=== PATIENT | female | born 1965 | race Caucasian/White ===

== ENCOUNTER 2020-07-17 17:33 | Emergency (ER) | payer BC ==
[~2020-07-17] VITALS: Ht 162.6 cm; Wt 111.6 kg
[2020-07-17] MEDS ORDERED: SODIUM CHLORIDE 0.9% 1000ML 1,000 ML IV ONE (18:00)
[2020-07-17 19:12] LABS: BASOPHILS # (AUTO) 0.1 (0.0-0.1); BASOPHILS % 1.2 % (0.0-1.0); EOSINOPHILS # (AUTO) 0.2 (0.0-0.4); EOSINOPHILS % 2.5 % (0.0-6.0); HEMATOCRIT 43.6 % (34.2-44.1); HEMOGLOBIN 14.6 g/dL (12.0-16.0); LYMPHOCYTES # (AUTO) 2.8 (1.0-3.2); LYMPHOCYTES % 40.5 % (18.0-39.1); MEAN CORPUSCULAR HEMOGLOBIN 29.9 pg (28-32); MEAN CORPUSCULAR HGB CONC 33.5 g/dL (31-35); MEAN CORPUSCULAR VOLUME 89.2 fL (81-99); MONOCYTES # (AUTO) 0.5 (0.2-0.8); MONOCYTES % 6.7 % (4.4-11.3); NEUTROPHILS # (AUTO) 3.4 (2.1-6.9); NEUTROPHILS % 48.8 % (38.7-80.0); PLATELET COUNT 225 x10e3/uL (140-360); RED BLOOD COUNT 4.89 x10e6/uL (3.6-5.1); RED CELL DISTRIBUTION WIDTH 11.9 % (11.7-14.4)
[2020-07-17 19:30] LABS: ALANINE AMINOTRANSFERASE 57 IU/L (0-55); ALBUMIN 4.6 g/dL (3.5-5.0); ALBUMIN/GLOBULIN RATIO 1.5 (0.8-2.0); ALKALINE PHOSPHATASE 84 IU/L (40-150); ANION GAP 15.8 mmol/L (8-16); BLOOD UREA NITROGEN 16 mg/dL (7-26); BUN/CREATININE RATIO 19 (6-25); CALCIUM 9.6 mg/dL (8.4-10.2); CARBON DIOXIDE 22 mmol/L (22-29); CHLORIDE 100 mmol/L (98-107); CREATININE, SERUM 0.83 mg/dL (0.57-1.11); EST GLOMERULAR FILTRATION RATE > 60 ML/MIN (60-); GLUCOSE 277 mg/dL (74-118); POTASSIUM 3.8 mmol/L (3.5-5.1); SODIUM 134 mmol/L (136-145)
[2020-07-17 19:53] LABS: CLARITY,URINE SL CLOUDY (CLEAR); COLOR,URINE YELLOW (YELLOW); KETONES,URINE NEGATIVE (NEGATIVE); LEUKOCYTE ESTERASE ,URINE NEGATIVE (NEGATIVE); NITRITE,URINE NEGATIVE (NEGATIVE); PROTEIN,URINE DIPSTICK TRACE (NEGATIVE); URINE UROBILINOGEN 0.2 mg/dL (0.2 - 1)
[2020-07-17 20:06] LABS: BACTERIA,URINE MANY /HPF; EPITHELIAL CELLS,URINE MODERATE /LPF
== END 2020-07-17 20:45 | disposition home or self-care (01) ==
LOC: ER 18:26
DX: E11.65 Type 2 diabetes mellitus with hyperglycemia (principal); I10 Essential (primary) hypertension; I50.9 Heart failure, unspecified; K21.9 Gastro-esophageal reflux disease without esophagitis; F41.9 Anxiety disorder, unspecified; E03.9 Hypothyroidism, unspecified
CPT/HCPCS: 36415; 80053; 81001; 81003; 82948; 85025; 99283; J7030

== ENCOUNTER 2020-11-30 19:28 | Observation (INO) | payer BC ==
[~2020-11-30] VITALS: Ht 162.6 cm; Wt 109.0 kg
[2020-11-30] MEDS ORDERED: CEFEPIME 1GM/NS 0.9% 50 ML 50 ML IV STA (19:51)
[2020-11-30] MEDS ORDERED: ASPIRIN 81 MG CHEW TAB PO ONE (20:00)
[2020-11-30] MEDS ORDERED: SODIUM CHLORIDE 0.9% 1000ML 1,000 ML IV SCH (20:00)
[2020-11-30] MEDS ORDERED: ACETAMINOPHEN 325 MG TAB PO ONE (20:00)
[2020-11-30 20:11] LABS: BASOPHILS # (AUTO) 0.1 (0.0-0.1); BASOPHILS % 0.5 % (0.0-1.0); EOSINOPHILS % 0.2 % (0.0-6.0); HEMATOCRIT 38.6 % (34.2-44.1); HEMOGLOBIN 12.8 g/dL (12.0-16.0); LYMPHOCYTES # (AUTO) 2.8 (1.0-3.2); LYMPHOCYTES % 21.6 % (18.0-39.1); MEAN CORPUSCULAR HEMOGLOBIN 29.7 pg (28-32); MEAN CORPUSCULAR HGB CONC 33.2 g/dL (31-35); MEAN CORPUSCULAR VOLUME 89.6 fL (81-99); MONOCYTES # (AUTO) 1.5 (0.2-0.8); MONOCYTES % 11.6 % (4.4-11.3); NEUTROPHILS # (AUTO) 8.5 (2.1-6.9); NEUTROPHILS % 65.6 % (38.7-80.0); PLATELET COUNT 292 x10e3/uL (140-360); RED BLOOD COUNT 4.31 x10e6/uL (3.6-5.1); RED CELL DISTRIBUTION WIDTH 12.7 % (11.7-14.4)
[2020-11-30] MEDS ORDERED: CEFTRIAXONE SOD 1 GM in SODIUM CHLORIDE 0.9% 50ML 50 ML IV ONE (20:15)
[2020-11-30 20:21] LABS: CLARITY,URINE SL CLOUDY (CLEAR); COLOR,URINE AMBER (YELLOW); KETONES,URINE 1+ (NEGATIVE); LEUKOCYTE ESTERASE ,URINE SMALL (NEGATIVE); NITRITE,URINE NEGATIVE (NEGATIVE); PROTEIN,URINE DIPSTICK 2+ (NEGATIVE); URINE UROBILINOGEN 2 mg/dL (0.2 - 1)
[2020-11-30] MEDS ORDERED: ONDANSETRON HCL INJ 2MG/ML 2ML 2 MG/ML VIAL IV STA (20:27)
[2020-11-30] MEDS ORDERED: CEFEPIME HCL 1GM 1 GM in SODIUM CHLORIDE 0.9% 50ML 50 ML IV ONE (20:30)
[2020-11-30 20:32] LABS: BACTERIA,URINE MANY /HPF
[2020-11-30 20:35] LABS: ALBUMIN 4.1 g/dL (3.5-5.0); ANION GAP 18.6 mmol/L (8-16); CALCIUM 9.5 mg/dL (8.4-10.2); CREATININE, SERUM 1.26 mg/dL (0.57-1.11); POTASSIUM 3.6 mmol/L (3.5-5.1)
[2020-11-30] MEDS ORDERED: ONDANSETRON HCL INJ 2MG/ML 2ML 2 MG/ML VIAL ONE (20:36)
[2020-11-30 20:42] LABS: CREATINE KINASE MB 0.4 ng/mL (0-5.0)
[2020-11-30] MEDS: SODIUM CHLORIDE 0.9% 1000ML 1,000 ML IV SCH (23:15)
[2020-12-01] MEDS ORDERED: ACETAMINOPHEN 325 MG TAB ONE (02:41)
[2020-12-01 06:26] LABS: BASOPHILS # (AUTO) 0.1 (0.0-0.1); BASOPHILS % 0.6 % (0.0-1.0); EOSINOPHILS % 0.1 % (0.0-6.0); HEMATOCRIT 35.7 % (34.2-44.1); HEMOGLOBIN 11.6 g/dL (12.0-16.0); LYMPHOCYTES % 18.1 % (18.0-39.1); MEAN CORPUSCULAR HEMOGLOBIN 29.5 pg (28-32); MEAN CORPUSCULAR HGB CONC 32.5 g/dL (31-35); MEAN CORPUSCULAR VOLUME 90.8 fL (81-99); MONOCYTES # (AUTO) 1.4 (0.2-0.8); MONOCYTES % 13.1 % (4.4-11.3); NEUTROPHILS # (AUTO) 7.4 (2.1-6.9); NEUTROPHILS % 67.6 % (38.7-80.0); PLATELET COUNT 258 x10e3/uL (140-360); RED BLOOD COUNT 3.93 x10e6/uL (3.6-5.1); RED CELL DISTRIBUTION WIDTH 12.8 % (11.7-14.4)
[2020-12-01] MEDS: SODIUM CHLORIDE 0.9% 1000ML 1,000 ML IV SCH ×4 (06:39→23:15)
[2020-12-01 06:45] LABS: ALBUMIN 3.5 g/dL (3.5-5.0); ALBUMIN/GLOBULIN RATIO 0.9 (0.8-2.0); ANION GAP 16.4 mmol/L (8-16); CALCIUM 8.6 mg/dL (8.4-10.2); CREATININE, SERUM 1.02 mg/dL (0.57-1.11); POTASSIUM 3.4 mmol/L (3.5-5.1)
[2020-12-01] MEDS ORDERED: LEXAPRO20 MG PO (07:17)
[2020-12-01] MEDS ORDERED: METOPROLOL SUCC25 MG PO (07:17)
[2020-12-01] MEDS ORDERED: TRIAMTERENE-HCTZ1 EA PO (07:17)
[2020-12-01] MEDS ORDERED: MELOXICAM7.5 MG PO (07:17)
[2020-12-01] MEDS ORDERED: ULORIC40 MG PO (07:17)
[2020-12-01] MEDS ORDERED: OMEPRAZOLE40 MG PO (07:17)
[2020-12-01] MEDS ORDERED: NEURONTIN300 MG PO (07:17)
[2020-12-01] MEDS ORDERED: LEVOTHYROXINE50 MCG PO (07:17)
[2020-12-01] MEDS ORDERED: FARXIGA5 MG PO (07:17)
[2020-12-01] MEDS ORDERED: GLIPIZIDE5 MG PO (07:17)
[2020-12-01] MEDS ORDERED: METFORMIN HCL500 MG PO (07:17)
[2020-12-01] MEDS ORDERED: TIZANIDINE HCL4 MG PO (07:17)
[2020-12-01] MEDS ORDERED: LOSARTAN POTASS25 MG PO (07:17)
[2020-12-01] MEDS ORDERED: CRESTOR10 MG PO (07:17)
[2020-12-01] MEDS ORDERED: IOPAMIDOL 370 MG/ML 200 ML INFUS..BTL INJ ONE (07:36)
[2020-12-01] MEDS ORDERED: SODIUM CHLORIDE 0.9% 50ML 50 ML ONE (07:36)
[2020-12-01] MEDS ORDERED: DEXTROSE 50% SYRINGE 50 ML IV PRN (08:45)
[2020-12-01] MEDS ORDERED: ONDANSETRON HCL INJ 2MG/ML 2ML 2 MG/ML VIAL IV PRN (08:45)
[2020-12-01] MEDS ORDERED: ACETAMINOPHEN/CODEINE 300MG - 30MG TAB PO PRN (08:45)
[2020-12-01] MEDS ORDERED: MELATONIN 5 MG TABLET PO PRN (08:45)
[2020-12-01] MEDS ORDERED: HYDRALAZINE HCL 20 MG/ML VIAL IV PRN (08:45)
[2020-12-01] MEDS ORDERED: POTASSIUM CHLORIDE 10MEQ EA PO ONE (08:45)
[2020-12-01] MEDS: PANTOPRAZOLE SOD 40 MG TABEC PO SCH (09:00)
[2020-12-01] MEDS: ESCITALOPRAM OXALATE 10 MG TAB PO SCH (09:00)
[2020-12-01] MEDS: TRIAMTERENE/HCTZ 37.5-25 MG TAB PO SCH (09:00)
[2020-12-01] MEDS: METOPROLOL SUCCINATE 25 MG TAB XL PO SCH (09:00)
[2020-12-01] MEDS: GABAPENTIN 300 MG CAP PO SCH ×3 (09:00→21:00)
[2020-12-01] MEDS: LEVOTHYROXINE SODIUM 50 MCG TAB PO SCH (09:00)
[2020-12-01] MEDS: FEBUXOSTAT 80 MG TAB PO SCH (09:00)
[2020-12-01] MEDS: LOSARTAN POTASSIUM 25 MG TAB PO SCH (09:00)
[2020-12-01] MEDS ORDERED: CEFTRIAXONE SOD 1 GM/50 ML BAG IV SCH (09:00)
[2020-12-01] MEDS: CEFTRIAXONE SOD 1 GM in SODIUM CHLORIDE 0.9% 50ML 50 ML IV SCH (09:57)
[2020-12-01 10:00] VITALS: BP 119/66
[2020-12-01 10:23] VITALS: BP 119/56
[2020-12-01] MEDS: INSULIN LISPRO 100 UNIT/1 ML 3ML VIAL SQ SCH ×3 (11:30→21:04)
[2020-12-01 16:00] VITALS: BP 155/79
[2020-12-01] MEDS: ACETAMINOPHEN 325 MG TAB PO PRN (18:36)
[2020-12-01] MEDS ORDERED: POTASSIUM CHLORIDE 20 MEQ TAB CR PO ONE (18:42)
[2020-12-01 20:00] VITALS: BP 130/77
[2020-12-01] MEDS: SIMVASTATIN 20 MG TAB PO SCH ×2 (21:00→21:11)
[2020-12-01] MEDS: TIZANIDINE HCL 4 MG TAB PO SCH (21:10)
[2020-12-01 22:15] VITALS: BP 155/79
[2020-12-02] VITALS: BP 126/61
[2020-12-02 04:00] VITALS: BP 128/68
[2020-12-02] MEDS: SODIUM CHLORIDE 0.9% 1000ML 1,000 ML IV SCH (05:30)
[2020-12-02] MEDS: INSULIN LISPRO 100 UNIT/1 ML 3ML VIAL SQ SCH ×2 (07:30→11:30)
[2020-12-02 08:00] VITALS: BP 119/69
[2020-12-02] MEDS: TIZANIDINE HCL 4 MG TAB PO SCH (09:00)
[2020-12-02] MEDS: ACETAMINOPHEN 325 MG TAB PO PRN (10:25)
[2020-12-02] MEDS: CEFTRIAXONE SOD 1 GM in SODIUM CHLORIDE 0.9% 50ML 50 ML IV SCH (10:37)
[2020-12-02] MEDS: LEVOTHYROXINE SODIUM 50 MCG TAB PO SCH (10:37)
[2020-12-02] MEDS: TRIAMTERENE/HCTZ 37.5-25 MG TAB PO SCH (10:37)
[2020-12-02] MEDS: PANTOPRAZOLE SOD 40 MG TABEC PO SCH (10:37)
[2020-12-02] MEDS: ESCITALOPRAM OXALATE 10 MG TAB PO SCH (10:37)
[2020-12-02] MEDS: GABAPENTIN 300 MG CAP PO SCH (10:37)
[2020-12-02] MEDS: LOSARTAN POTASSIUM 25 MG TAB PO SCH (10:37)
[2020-12-02] MEDS: METOPROLOL SUCCINATE 25 MG TAB XL PO SCH (10:38)
[2020-12-02] MEDS: FEBUXOSTAT 80 MG TAB PO SCH (10:38)
[2020-12-02 10:53] VITALS: BP 119/69
[2020-12-02 12:02] VITALS: BP_SYST 115; BP_SYST 119; BP_DIAS 64; BP_DIAS 69
[2020-12-02] MEDS ORDERED: CEFUROXIME250 MG PO (14:02)
[2020-12-02] MEDS ORDERED: TIZANIDINE HCL 4 MG TAB PO SCH (21:00)
== END 2020-12-02 15:30 | disposition home or self-care (01) ==
LOC: ER 19:30 → ERHOLD 23:17 → INTOOBSV 23:17 → MED/SURG 12-01 09:54
PROVIDERS: ADMIT Internal Medicine; ATTEND Internal Medicine
DX: A41.9 Sepsis, unspecified organism (principal); N10 Acute pyelonephritis; I11.0 Hypertensive heart disease with heart failure; I50.9 Heart failure, unspecified; E11.9 Type 2 diabetes mellitus without complications; F41.9 Anxiety disorder, unspecified; K21.9 Gastro-esophageal reflux disease without esophagitis; Z88.5 Allergy status to narcotic agent; E78.5 Hyperlipidemia, unspecified; E03.9 Hypothyroidism, unspecified; E66.01 Morbid (severe) obesity due to excess calories; Z68.41 Body mass index [BMI] 40.0-44.9, adult; Z79.84 Long term (current) use of oral hypoglycemic drugs
CPT/HCPCS: 36415 ×3; 71045; 74177; 80053 ×2; 81001; 82550; 82553; 82948 ×2; 84484; 85025 ×2; 87086; 87186; 87400; 99284; G0378 ×3; J0692; J0696 ×2; J2405 ×2; J7030 ×3; Q9967; S0164; U0002